=== PATIENT | female | born 1940 | race Caucasian/White ===

== ENCOUNTER → 2017-09-06 | Outpatient (CLI) | payer OTHER, MEDICARE | LOC: BRMIMAGING 12:21 | PROVIDERS: ATTEND Internal Medicine | DX: Z13.820 Encounter for screening for osteoporosis (principal); M85.89 Other specified disorders of bone density and structure, multiple sites; I70.0 Atherosclerosis of aorta; Z78.0 Asymptomatic menopausal state ==

== ENCOUNTER 2017-10-23 09:18 | Day surgery (SDC) | payer OTHER, MEDICARE ==
[2017-10-23] MEDS ORDERED: fentaNYL 100 MCG/2 ML INJ IVP ONE (09:22)
[2017-10-23] MEDS ORDERED: NS 500 ML IV ONE (09:22)
[2017-10-23] MEDS ORDERED: BENZOCAINE UNIT DOSE SPRAY HURRICAINE MM ONE (09:22)
[2017-10-23] MEDS ORDERED: MIDAZOLAM 2 MG/2 ML VIAL IVP ONE (09:22)
[2017-10-23] MEDS ORDERED: ATROPINE SULFATE 1 MG/10 ML SYR IVP ONE (09:22)
--- NOTE | 2017-10-23 09:41 | CPEKG ---
Heart Rate: 81 RR Interval: 741 QRSD Interval: 108 QT Interval: 436 QTC Interval: 506 QRS [place]: 11 T Wave [place]: 43 EKG Severity - ABNORMAL ECG - EKG Impression: A-FLUTTER W/ PREDOM 3:1 AV BLOCK, A-RATE 223 EKG Impression: VENTRICULAR PREMATURE COMPLEX EKG Impression: INFERIOR INFARCT, OLD EKG Impression: ANTERIOR INFARCT, AGE INDETERMINATE EKG Impression: BORDERLINE PROLONGED QT INTERVAL Electronically Signed By: Adolfo Hale 24-Oct-2017 15:35:32
[2017-10-23 10:29] LABS: INR 2.39 (0.83-1.16); PROTIME(PATIENT) 26.1 SEC (12.0-15.0)
--- NOTE | 2017-10-23 11:09 | PDANEPAE ---
ANE History of Present Illness 77 year old with AF ANE Past Medical History - Cardiovascular History Hx Hypertension: Yes Hx Coronary Artery / Peripheral Vascular Disease: Yes - Pulmonary History Hx Sleep Apnea: No ANE Review of Systems Review of systems is: negative Review of Systems: ANE Patient History - Allergies Allergies/Adverse Reactions: No Known Allergies Allergy (Unverified 10/23/17 09:22) - Home Medications Home Medications: Aspirin 81mg (*) 81 mg PO DAILY 10/23/17 [Last Taken 10/22/17] Atorvastatin Calcium [Lipitor 40 mg (*)] 40 mg PO DAILY 10/23/17 [Last Taken Unknown] Coumadin 4 mg 10/23/17 [Last Taken 10/22/17] Levothyroxine [Synthroid 100 mcg (*)] 100 mg PO DAILY 10/23/17 [Last Taken 10/22] Lisinopril/Hctz 20/12.5MG PO DAILY 10/23/17 [Last Taken 10/22/17] Metoprolol Tartrate 50 mg PO BID 10/23/17 [Last Taken 10/22/17] Pantoprazole Sodium 40 mg PO DAILY 10/23/17 [Last Taken 10/22/17] Xanax 0.25 MG (*) 0.25 mg PO PRN PRN 10/23/17 [Last Taken Unknown] Zoloft 100mg (*) 100 mg PO BID 10/23/17 [Last Taken 10/22/17] - Smoking Hx Smoking Status: Former smoker ANE Labs/Vital Signs - Labs Result Diagrams: 10/23/17 10:11 - Vital Signs Height: 162.56 cm Weight: 77.111 kg ANE Physical Exam - Airway Neck exam: FROM Mallampati Score: Class 2 - Pulmonary Pulmonary: no respiratory distress - Cardiovascular Cardiovascular: regular rate and rhythym - ASA Status ASA Status: III ANE Anesthesia Plan Anesthesia Plan: MAC
[2017-10-23] MEDS ORDERED: PROPOFOL 200 MG/20 ML VIAL ONE (11:15)
--- NOTE | 2017-10-23 11:22 | PDHPUP ---
History & Physical Update H&P update statement: This history and physical update is based on an assessment of the patient which was completed after admission or registration (within 24 hours), but prior to the surgery/procedure. H&P update: H&P reviewed & patient examined, no change in patient's condition since H&P completed
--- NOTE | 2017-10-23 11:57 | PDTEE1 ---
BYRON Cardioversion Procedure Procedure: electrical cardioversion, transesophageal echo Indications: other (atrial flutter) Procedural Details: Sedation was provided by Dr. Kelley of the anesthesia service. Pads were placed in anterior-posterior position. BYRON probe was advanced and standard images obtained. There is no evidence of left atrial or left atrial appendage thrombus. Synchronized cardioversion attempt #1: 200J Results: normal sinus rhythm Conclusions: successful BYRON cardioversion
--- NOTE | 2017-10-23 12:05 | POSTANESTH ---
Post Anesthetic Evaluation Cardiovascular Status: Normal, Stable Respiratory Status: Normal, Stable Level of Consciousness/Mental Status: Can Participate in Eval Pain Control: Adequate, Prn Tx Ordered Nausea/Vomiting Control: Adequate, Prn Tx Ordered Complications Possibly Related to Anesthesia: None Noted
--- NOTE | 2017-10-23 17:14 | ECHO ---
[email or web address] [address] [address] Main: [phone] Fax: Transesophageal Echocardiography Name: CONRAD SCHNEIDER MR#: [id number] Study Date: 10/23/2017 Study Time: 10:56 AM Date of : 1940 Age: 77 year(s) Height: ( ) Weight: ( ) BSA: Gender: Female Examination: BYRON Indication: Pre Cardioversion Image Quality: Contrast: Requested by: Eli Soto Heart Rate: Rhythm: BP: / Procedure Staff Tin Tie Machine Operator Automatic: Chris Chavez RDCS Reading Physician: Eli Soto MD Requesting Provider: BYRON Exam Details Conclusions: The ejection fraction is estimated to be 40-45 %. An agitated saline study was performed and was negative for intracardiac shunting. No thrombus in left appendage. The mitral valve has been repaired. There is mid to moderate mitral regurgitation.. Proceeded with successful elective DC cardioversion.. Measurements: Chambers Valvular Assessment AV/MV Valvular Assessment TV/PV Normal Normal Normal Name Value Range Name Value Range Name Value Range EF Range: 40-45 % TR Vmax: 2.28 mm/s ( - ) TR PGmax: 21 mmHg ( - ) Additional Measurements: Findings: The ejection fraction is estimated to be 40-45 %. Left Atrium: An agitated saline study was performed and was negative for intracardiac shunting. Left Atrial Appendage: Good color flow doppler in the left atrial appendage. No thrombus in left appendage. Mitral Valve: The mitral valve has been repaired. There is mid to moderate mitral regurgitation.. Patient: CONRAD SCHNEIDER Study Date: 10/23/2017 Page 1 of 2 10:56 AM Aortic Valve: The aortic valve is normal in appearance and function. The aortic valve is tri-leaflet. Tricuspid Valve: The tricuspid valve is normal in appearance and function. Pulmonic Valve: The pulmonic valve is normal in appearance and function. Aorta: The aorta is normal. Pericardium: No pericardial effusion. Exam Comments: Proceeded with successful elective DC cardioversion.. l1n (No Signature Object) Patient: CONRAD SCHNEIDER Study Date: 10/23/2017 Page 2 of 2 10:56 AM [id number]
--- NOTE | 2017-10-24 10:25 | CPEKG ---
Heart Rate: 52 RR Interval: 1154 P-R Interval: 204 QRSD Interval: 112 QT Interval: 464 QTC Interval: 432 P [place]: 32 QRS [place]: 8 T Wave [place]: 37 EKG Severity - ABNORMAL ECG - EKG Impression: SINUS RHYTHM EKG Impression: NONSPECIFIC INTRAVENTRICULAR CONDUCTION DELAY EKG Impression: INFERIOR INFARCT, AGE INDETERMINATE EKG Impression: CONSIDER ANTERIOR INFARCT Electronically Signed By: Adolfo Hale 24-Oct-2017 15:35:37
== END 2017-10-23 14:04 | disposition home or self-care (01) ==
LOC: FCATH 09:18
PROVIDERS: ATTEND Internal Medicine Cardiovascular Disease
PROC: 5A2204Z Restoration of Cardiac Rhythm, Single (ICD-10-PCS; principal; 2017-10-23)
DX: I48.92 Unspecified atrial flutter (principal); I10 Essential (primary) hypertension; E78.00 Pure hypercholesterolemia, unspecified; R06.02 Shortness of breath; I38 Endocarditis, valve unspecified; I25.10 Atherosclerotic heart disease of native coronary artery without angina pectoris
CPT/HCPCS: J0461; J2704

== ENCOUNTER → 2017-11-17 | Outpatient (CLI) | payer OTHER, MEDICARE | LOC: BHFA 13:30 | PROVIDERS: ATTEND Internal Medicine Cardiovascular Disease | DX: I25.10 Atherosclerotic heart disease of native coronary artery without angina pectoris (principal) | CPT/HCPCS: 78452; 93017; A9500 ==

== ENCOUNTER 2017-11-22 07:32 | Observation (INO) | payer OTHER, MEDICARE ==
[2017-11-22] MEDS ORDERED: NS 1,000 ML IV ONE (07:33)
[2017-11-22] MEDS ORDERED: ASPIRIN EC 325 MG TAB PO ONE (07:33)
[2017-11-22] MEDS ORDERED: diphenhydrAMINE 25 MG CAP PO ONE (07:33)
[2017-11-22] MEDS ORDERED: FAMOTIDINE 20 MG TAB PO ONE (07:33)
[2017-11-22] MEDS ORDERED: DIAZEPAM 5 MG TAB PO ONE (07:33)
--- NOTE | 2017-11-22 07:58 | CPEKG ---
Heart Rate: 57 RR Interval: 1053 P-R Interval: 136 QRSD Interval: 106 QT Interval: 444 QTC Interval: 433 P [place]: 26 QRS [place]: -7 T Wave [place]: 43 EKG Severity - ABNORMAL ECG - EKG Impression: SINUS RHYTHM EKG Impression: INFERIOR INFARCT, OLD EKG Impression: CONSIDER ANTERIOR INFARCT Electronically Signed By: Edilberto Melissa 22-Nov-2017 10:45:53
[2017-11-22 08:14] LABS: PLATELET COUNT 325 10^3/uL (150-400)
[2017-11-22] MEDS ORDERED: LIDOCAINE 1% 300 MG/30 ML SDV ONE (08:27)
[2017-11-22] MEDS ORDERED: fentaNYL 100 MCG/2 ML INJ ONE ×2 (08:28→11:14)
[2017-11-22] MEDS ORDERED: MIDAZOLAM 2 MG/2 ML VIAL ONE ×3 (08:28→12:30)
[2017-11-22] MEDS ORDERED: IOPAMIDOL (ISOVUE-370) 150 ML BTL IV ONE ×3 (08:28→12:16)
[2017-11-22 08:32] LABS: INR 2.23 (0.83-1.16); PROTIME(PATIENT) 24.7 SEC (12.0-15.0)
--- NOTE | 2017-11-22 10:10 | PDPROPOC ---
Sedation Plan of Care Sedation Plan of Care: vital signs stable, mental status noted, patient educated of risks, benefits, alternatives, patient can tolerate sedation ASA Classification: ASA 3 Planned drugs: fentanyl, midazolam Mallampati Score: Class 2 Mallampati Reference Image: Patient passed 3-3-2 rule?: Yes
--- NOTE | 2017-11-22 10:11 | PDHPUP ---
History & Physical Update H&P update statement: This history and physical update is based on an assessment of the patient which was completed after admission or registration (within 24 hours), but prior to the surgery/procedure. H&P update: H&P reviewed & patient examined, no change in patient's condition since H&P completed H&P changes: patient with INR of 2.2 known ROJAS occlusion needs cath for large lateral perfusion deficit.
[2017-11-22] MEDS ORDERED: HEPARIN 10,000 UNIT/10 ML MDV (1,000 UNIT/ML) ONE (10:21)
[2017-11-22] MEDS ORDERED: VERAPAMIL 5 MG/2 ML VIAL ONE (10:21)
--- NOTE | 2017-11-22 10:28 | PDDXCAT ---
Diagnostic Cath Note - . Date: 11/22/17 Electrician Shop: Geoffrey Indication: CCC Class III and IV angina on medical treatment, High-risk criteria on noninvasive testing (choose option below) (Shortness of breath, High risk stress test), other High-risk criteria on non-invasive testing: high-risk treadmill score (score<=- 11) - Procedure Access: left wrist Procedure: left heart catheterization, coronary angiography, vein graft injection - Materials Left Heart Cath size: 6F (slender) Left Heart Cath materials: standard multipack (JL4, JR4, pigtail) - Findings-Left Heart Catheterization LM: The LM coronary has an ostial 40% stenosis and is severely disease prior to the bifucation into the LAD and circumflex system. LAD: The LAD proper demonstrtates a 80% ostial stenosis. The vein graft to the LAD is noted to be widely patent and comes off inferior to the diagonal graft and from the right side of the aorta. The ostial diagonal graft is again seen retrograde and is noted to be severely stenosed at the takeoff from its aorta. LCX: The LCX is small, 1.5 mm in size and diffusely diseased. It is ungrafted. Approx 2mm in size. There is 70% ostial stenosis. KAELA III flow. No evidence of flow limiting obstruction. This vessel is not a good target for intervension. RCA: RCA is occluded after the first RV branch. KAELA 0 flow. rSV.) The rSVG to the RCA is widely patent. 2.)The rSVG to the diagonal occluded has a 95% bird's beak ostial stenosis with KAELA III flow. 3.) The rSVG to the LAD is widely patent and was visualized in its entirety via the retrograde filling from left coronary artery injection. KAELA III flow throughout. ROJAS: The ROJAS is known to be occluded. EDP: LVEDP is 23 mmHg. LVEF: The EF is 45-50%. Wall motion: The EF is 45-50% with basal inferior wall hypokinesis consistent with prior myocardial infarction. No significant mitral regurgitation. Complications: NONE. Estimated blood loss: <50ml Closure method: TR Band Assessment: The patient has ute vessel coronary artery disease with flow limiting obstruction in the rSVG to the diagonal. This was subsequently repaired with a drug eluting stent. Plan: Dual antiplatelet therapy with Aspirin 81 mg for the first month followed by Coumadin in adjusted dose, along with Plavix 75 mg daily should be continued for at least 1 year following drug eluting stent implantation. No elective surgery for the first 3 months. Decisions to stop the combination of Coumadin and Plavix before 1 year should involve our office at [facility], . Intervention: A 6 Bengali IM was used for guide catheter support. A 0.014 Intuition Wire was advanced across the lesion in question under direct and angiographic guidance. A 4.0 x 20 mm NC balloon was used to pre-dilate the lesion. Max pressure was 12 ARLENE. We then placed a 0.014 Wiggle wire next to the Intuition wire and put 3.5 x 10 mm cutting balloon in, this resulted in 60% stenosis s/p angioplasty. The lesion in the rSVG to the diagonal was secondarily stented with a 4.0 x 16 Synergy drug eluting stent. A 4.5 x 12 mm NC balloon was used for post- dilation. 20% post stent residual. KAELA III flow pre and post stent implantation. Post stent we attempted to perform IVUS over the Wiggle wire. The device would not advance because of lack of guide support. To avoid damaging the freshly implanted stent we abandoned IVUS. IF THE PATIENT HAS SUBSEQUENT INTERVENTION TO THIS VEIN GRAFT IT WOULD BE RECOMMENDED THAT LEFT CORONARY BE INJECTED FIRST TO TRY TO VISUALIZE THE STENT WITH RETROGRADE ANGIOGRAPHY. BECAUSE WE WERE UNABLE TO PERFORM POST STENT IMPLANTATION IVUS, I'M NOT SURE HOW MUCH OF THE STENT HANGS BACK INTO THE AORTA AND THEREFORE ATTEMPTS TO DIRECTLY CANNULATE THIS VESSEL MAY CAUSE DAMAGE TO THE STENT. CAUTION SHOULD BE USED IN ATTEMPTS TO PERFORM SELECTIVE ANGIOGRAPHY OF THE SVG TO THE DIAGONAL. CAREFUL REVIEW OF TODAY'S ANGIOGRAPHY WOULD BE IMPORTANT.
[2017-11-22] MEDS ORDERED: NITROGLYCERIN 0.4 MG BTL SL PRN (12:39)
[2017-11-22] MEDS ORDERED: TEMAZEPAM 15 MG CAP PO PRN (12:39)
[2017-11-22] MEDS ORDERED: ATROPINE SULFATE 1 MG/10 ML SYR IVP PRN (12:39)
[2017-11-22] MEDS ORDERED: HYDROCODONE/APAP 5/325 TAB PO PRN (12:39)
[2017-11-22] MEDS ORDERED: OXYCODONE/APAP 5/325 TAB PO PRN (12:39)
[2017-11-22] MEDS ORDERED: LORazepam 2 MG/ML INJ IVP PRN (12:39)
[2017-11-22] MEDS ORDERED: ONDANSETRON 4 MG/2 ML VIAL IVP PRN (12:39)
[2017-11-22] MEDS ORDERED: CLOPIDOGREL BISULFATE 75 MG TAB PO ONE (12:39)
[2017-11-22] MEDS ORDERED: CLOPIDOGREL BISULFATE 75 MG TAB ONE (12:40)
[2017-11-22] MEDS ORDERED: NS 1,000 ML IV SCH (12:45)
[2017-11-22] MEDS ORDERED: ALPRAZolam 0.25 MG TAB PO PRN (12:49)
--- NOTE | 2017-11-22 13:31 | CPEKG ---
Heart Rate: 42 RR Interval: 1429 P-R Interval: 216 QRSD Interval: 108 QT Interval: 516 QTC Interval: 432 P [place]: 36 QRS [place]: -29 T Wave [place]: 10 EKG Severity - ABNORMAL ECG - EKG Impression: SINUS BRADYCARDIA EKG Impression: INFERIOR INFARCT, AGE INDETERMINATE EKG Impression: ANTERIOR INFARCT, AGE INDETERMINATE Electronically Signed By: Edilberto Melissa 22-Nov-2017 22:33:19
[2017-11-22] MEDS: ACETAMINOPHEN 325 MG TAB PO PRN (17:27)
[2017-11-23 04:58] LABS: PLATELET COUNT 290 10^3/uL (150-400)
[2017-11-23] MEDS ORDERED: LEVOTHYROXINE 100 MCG TAB PO SCH (06:00)
[2017-11-23] MEDS ORDERED: PANTOPRAZOLE SODIUM 40 MG TAB PO SCH (09:00)
[2017-11-23] MEDS ORDERED: CLOPIDOGREL BISULFATE 75 MG TAB PO SCH (09:00)
[2017-11-23] MEDS ORDERED: METOPROLOL SUCCINATE XR 25 MG TAB PO SCH (09:00)
[2017-11-23] MEDS ORDERED: ATORVASTATIN CALCIUM 40 MG TAB PO SCH (09:00)
[2017-11-23] MEDS ORDERED: ASPIRIN EC 325 MG TAB PO SCH (09:00)
[2017-11-23] MEDS ORDERED: LISINOPRIL/HCTZ 20/12.5MG 1 EA TAB PO SCH (09:00)
[2017-11-23] MEDS ORDERED: SERTRALINE HCL 100 MG TAB PO SCH (09:00)
--- NOTE | 2017-11-23 09:01 | CPEKG ---
Heart Rate: 64 RR Interval: 938 P-R Interval: 144 QRSD Interval: 106 QT Interval: 428 QTC Interval: 442 P [place]: 24 QRS [place]: -1 T Wave [place]: 3 EKG Severity - ABNORMAL ECG - EKG Impression: SINUS RHYTHM EKG Impression: INCOMPLETE RIGHT BUNDLE BRANCH BLOCK EKG Impression: INFERIOR INFARCT, AGE INDETERMINATE Electronically Signed By: Edilberto Melissa 23-Nov-2017 22:57:08
--- NOTE | 2017-11-23 11:03 | PDCARPN ---
Cardiology Progress Note Chief Complaint: Post-cath and stent evaluation. Assessment/Plan: Assessment: Laurie had a heart catheterization yesterday with stenting in the ostium of the rSVG to the diagonal. She tolerated the procedure well and appears to be doing well today. Her wrist site appears to be healing well. Laurie continues to have some shortness of breath. I reviewed her lab work, which shows iron deficiency anemia. I discussed with the patient that her shortness of breath is no longer cardiac related and may be related to her iron deficiency anemia. She has not had dark or bloody stools and denies hematemesis. I have recommended that she have a colonoscopy in 3 months to evaluate for GI bleed or other GI abnormalities causing her anemia. Plan: We will repeat her lab work to evaluate the severity of her anemia. I think it is safe for the patient to be discharged home today. I recommend she follow up with of [facility] to schedule a colonoscopy. I discussed the findings with patient's daughter and have recommended a diet that is increased in iron. The patient will require iron supplementation as well. I suspect the patient does have significant iron deficiency anemia. 11/23/17 10:57 11/23/17 11:15 Subjective: The patient is resting in bed. She continues to complain of some shortness of breath. Her wrist site appears to be healing well and is not actively bleeding. Reviewed/Discussed With: family, hospitalist, multidisciplinary team Objective: Vital Signs (8 Hrs) Temp Pulse Resp BP Pulse Ox 11/23/17 07:28 36.8 C 63 18 127/43 H 91 L 11/23/17 04:00 37.7 C 76 16 135/53 H 91 L Intake/Output (24 Hrs) 11/22/17 11/23/17 11/24/17 05:59 05:59 05:59 Intake Total 575 Balance 575 Intake: Oral (ml) 575 Other: Weight 74.843 kg Number of Voids Toilet 3 Result Diagrams: 11/23/17 03:42 11/23/17 03:42 EKG: sinus rhythm old inferior infarct Telemetry: I reviewed the rhythm strips, she is having PVC's with occasional (2 overnight) couplets. - Physical Exam Constitutional: WDWN Eyes: PERRL Ears, Nose, Mouth, Throat: moist mucous membranes Cardiovascular: regular rate and rhythm Peripheral Pulses: 2+: carotid (R), carotid (L), femoral (R), femoral (L), dorsalis-pedis (R), dorsalis-pedis (L) Respiratory: clear to auscultate bilat Musculoskeletal: other (left wrist radial puncture site is intact with moderate ecchymosis. ) Neurologic: AAOx3 Psychiatric: cooperative, interactive ICD10 Worksheet Patient Problems: Problems Problem Status Onset Coronary artery disease Acute - ICD10 Problem Qualifiers (1) Coronary artery disease Qualifiers: Coronary Disease-Associated Artery/Lesion type: bypass graft [place] vs. transplanted heart: [place] heart Associated angina: with unstable angina Qualified Code(s): I25.700 - Atherosclerosis of coronary artery bypass graft(s) , unspecified, with unstable angina pectoris
[2017-11-23 11:22] VITALS: BP 112/51
--- NOTE | 2017-11-23 12:25 | ASMTCMCOM ---
CM Note CM Note Notes: Chart reviewed for discharge needs. Patient here for elective heart cath with complaints of increased shortness of breath, angiogram done with stent placement. Per MD questioning iron deficiency and recommending GI workup. Likely to discharge home independently today No needs identified, CM available should needs arise. Plan: Home no needs Date Signed: 11/23/2017 12:25 PM Electronically Signed By:Kim Us RN
[2017-11-23] MEDS: ACETAMINOPHEN 325 MG TAB PO PRN (13:25)
--- NOTE | 2017-11-24 19:06 | GDS ---
[f rep st] DISCHARGE SUMMARY ADMIT DIAGNOSIS: 1. Abnormal nuclear stress test. 2. Planned cardiac angiogram. 3. Known valvular heart disease with mitral repair in 2013. 4. Hypertension. 5. Dyslipidemia. 6. Paroxysmal atrial flutter with recent cardioversion. DISCHARGE DIAGNOSIS: 1. Percutaneous coronary intervention of the right saphenous vein graft to diagonal. 2. Past history of coronary artery bypass graft. 3. Hypertension. 4. Hyperlipidemia. 5. Valvular heart disease. COURSE OF HOSPITALIZATION: She was seen in clinic by ISAEL Bernabe, with complaints of increasi ng shortness of breath. She has been caring for her who has dementia. With her past history of coronary artery disease and bypass surgery, it was recommended to proceed with nuclear stress ellis ting which showed concern for progression of cardiac disease. It was recommended to proceed with car diac angiogram. She was taken to the cardiac shop laborer by Dr. Edilberto Melissa, finding a lesion of the ve in graft. Dr. Adolfo Hale was asked to intervene and was able to place a drug-eluting stent in the right saphenous vein graft to the diagonal. LVEF was estimated at 45% to 50%, with basal inferior wa ll hypokinesis consistent with prior myocardial infarction. There was no significant mitral regurgit ation. Dr. Hale recommended dual anti-platelet therapy with aspirin 81 mg for the 1st month follow ed by Coumadin in adjusted dose along with Plavix 75 mg daily. Wrist approach was utilized for the c ardiac angiogram, which is healing well with no ecchymosis or tenderness. On day of discharge, she did continue to have some shortness of breath. In review of lab work, she s hows to have iron deficiency anemia. This was discussed with the patient by Dr. Hale. She has had no indication of dark or bloody stools and denied hematemesis. Dr. Hale recommended a colonoscopy in 3 months to evaluate for GI bleed or other GI abnormalities causing her anemia. It is recommende d that she follow up with GI of the [facility] to schedule a colonoscopy. These findings were discussed with the patient's daughter. A diet with increased iron is recommended. She will require iron supp lementation as well. She is to follow up with her primary care doctor to oversee further evaluation of her anemia. At this time, she has been up ambulating and feels stable for discharge. MEDICATIONS: She will go home on Lipitor 40 mg daily, Tylenol Extra Strength 500 mg every 6 hours as needed not to exceed 3000 mg daily. Coumadin 6 mg Monday, Monday, , Monday; Coumadin 4 m g Monday, Monday, Monday. Protonix 40 mg daily. Xanax 0.25 mg t.i.d. as needed. Metoprolol succ inate 25 mg daily, lisinopril hydrochlorothiazide 20/12.5 mg 1 tab daily, Synthroid 100 mcg daily, as pirin 81 mg daily, sertraline 200 mg daily, Plavix 75 mg daily. ALLERGIES: She has no known allergies. PROCEDURES: Cardiac catheterization on 11/25/2017, with Dr. Adolfo Hale, finding RCA occluded after the 1st RV branch. PCI of the right saphenous vein graft to the diagonal with drug-eluting stent. EF estimated at 45% to 50%. There were no complications. PHYSICAL EXAMINATION: VITAL SIGNS: On day of discharge, blood pressure 112/51, heart rate 56 and re gular, oxygen saturation 91%. EKG showed normal sinus rhythm. HEART: Rate regular. No murmurs, ru bs, gallops. LUNGS: Clear to auscultation. No wheezes, rales, or rhonchi. EXTREMITIES: Wrist sit e intact with no bleeding, induration or pain. Good radial and ulnar pulses, good capillary refill. No peripheral edema. DISCHARGE PLAN: 1. Follow up in clinic in [address] Soto. She has this appointment scheduled. 2. Wrist precautions were reviewed verbally with written instructions provided. 3. Stop aspirin due to potential for bleeding. 4. Follow up with primary physician about iron deficiency and need for colonoscopy. 5. Have Coumadin level checked in 1 week. 6. Call [facility] for any concerns or questions. At this time, she is currently stable for discharge. /[id number]/[id number]
== END 2017-11-23 13:40 | disposition home or self-care (01) ==
LOC: FCATH 07:32 → F2W 12:41
PROVIDERS: ADMIT Internal Medicine Cardiovascular Disease; ATTEND Internal Medicine Cardiovascular Disease
PROC: B2151ZZ Fluoroscopy of Left Heart using Low Osmolar Contrast (ICD-10-PCS; principal; 2017-11-22)
PROC: 4A023N7 Measurement of Cardiac Sampling and Pressure, Left Heart, Percutaneous Approach (ICD-10-PCS; principal; 2017-11-22)
PROC: B21 Imaging, Heart, Fluoroscopy (ICD-10-PCS; principal; 2017-11-22)
PROC: 027034Z Dilation of Coronary Artery, One Artery with Drug-eluting Intraluminal Device, Percutaneous Approach (ICD-10-PCS; principal; 2017-11-22)
DX: I25.700 Atherosclerosis of coronary artery bypass graft(s), unspecified, with unstable angina pectoris (principal); R94.39 Abnormal result of other cardiovascular function study; D50.9 Iron deficiency anemia, unspecified; R06.02 Shortness of breath; I48.0 Paroxysmal atrial fibrillation; I48.92 Unspecified atrial flutter; I10 Essential (primary) hypertension; E78.00 Pure hypercholesterolemia, unspecified; I38 Endocarditis, valve unspecified; I25.2 Old myocardial infarction; K21.9 Gastro-esophageal reflux disease without esophagitis; E03.9 Hypothyroidism, unspecified; I25.10 Atherosclerotic heart disease of native coronary artery without angina pectoris; Z79.82 Long term (current) use of aspirin; Z79.01 Long term (current) use of anticoagulants; Z87.891 Personal history of nicotine dependence; Z82.49 Family history of ischemic heart disease and other diseases of the circulatory system; Z95.2 Presence of prosthetic heart valve; Z98.1 Arthrodesis status
CPT/HCPCS: 92978; 93005; 93459; C1725; C1753; C1769; C1874; C1887; C9604; J1644; J2250; J3010; Q9967; 84481-90

== ENCOUNTER → 2018-01-15 | Outpatient (CLI) | payer OTHER, MEDICARE | LOC: CIMAGING 13:20 | PROVIDERS: ATTEND Internal Medicine | DX: R06.02 Shortness of breath (principal); K44.9 Diaphragmatic hernia without obstruction or gangrene; M47.894 Other spondylosis, thoracic region; I70.0 Atherosclerosis of aorta; Z98.890 Other specified postprocedural states | CPT/HCPCS: 71046-PO ==

== ENCOUNTER 2018-01-30 16:28 | Emergency (ER) | payer OTHER, MEDICARE ==
--- NOTE | 2018-01-30 16:43 | EDPHY ---
H & P Stated Complaint: l sided upper back pain x 2 days sharp/worse with movement/ saw cards this m Time Seen by Provider: 01/30/18 16:43 - Personal History Current Tetanus Diphtheria and Acellular Pertussis (TDAP): Yes - Medical/Surgical History Hx Asthma: No Hx Chronic Respiratory Disease: No Hx Diabetes: No Hx Cardiac Disease: Yes Hx Renal Disease: No Hx Cirrhosis: No Hx Alcoholism: No Hx HIV/AIDS: No Hx Splenectomy or Spleen Trauma: No Other PMH: CAD, Depression, CABG x4 2003, GERD, MVR 2013, HTN, HLD, A-flutter, hypothyroid - Social History Smoking Status: Former smoker Constitutional: Initial Vital Signs Temperature (C) 36.3 C 01/30/18 16:39 Heart Rate 63 01/30/18 16:39 Respiratory Rate 19 01/30/18 16:39 Blood Pressure 165/55 H 01/30/18 16:39 O2 Sat (%) 96 01/30/18 16:39 O2 Delivery Mode Room Air Allergies/Adverse Reactions: No Known Allergies Allergy (Verified 01/30/18 16:39) Home Medications: Medication Instructions Recorded Atorvastatin Calcium [Lipitor 40 40 mg PO DAILY 10/23/17 mg (*)] ALPRAZolam [Xanax 0.25 MG (*)] 0.25 mg PO TID PRN 11/21/17 Acetaminophen [Tylenol ES 500 mg 500 mg PO Q6 PRN 11/21/17 (*)] Levothyroxine [Synthroid 100 mcg 100 mcg PO DAILY06 11/21/17 (*)] Lisinopril/Hctz 20/12.5MG 1 tab PO DAILY 11/21/17 [Zestoretic/Prinzide 20/12.5MG (*)] Metoprolol Succinate [Toprol Xl] 25 mg PO DAILY 11/21/17 Pantoprazole Sodium [Protonix 40mg 40 mg PO DAILY 11/21/17 (*)] Sertraline HCl 200 mg PO DAILY 11/21/17 Warfarin Sodium [Coumadin 4MG (*)] 4 mg PO MWF@16 11/21/17 Warfarin Sodium [Coumadin] 6 mg PO SUTUTHSA@16 11/21/17 Clopidogrel Bisulfate [Plavix (*)] 75 mg PO DAILY #30 tab 11/23/17 Cephalexin [Keflex (RX)] 500 mg PO TID #30 cap 01/30/18 oxyCODONE IR [Oxycodone Ir (*)] 5 mg PO Q4-6PRN PRN #20 tab 01/30/18 Medical Decision Making - Diagnostics Imaging Results: Imaging Impressions Ribs w/Chest X-Ray 01/30/18 16:48 Impression: 1. No acute osseous abnormality. 2. Mild cardiomegaly with central congestion. 3. Increased interstitial markings are likely age-related. Imaging: I viewed and interpreted images myself ED Course/Re-evaluation: CHIEF COMPLAINT: Left-sided back pain HISTORY OF PRESENT ILLNESS: The patient is an anticoagulated (Coumadin) 77 y/o female with a history of CABG x 4 and atrial fibrillation complaining of sharp, left-sided upper back pain, onset 2 days ago. She does care for her and often has to lift heavy objects. However, she is unable to recall an event that started the back pain. Due to this pain she took Motrin, Tylenol, and Xanax with mild relief of symptoms. Today at 11:00, 6 hours ago, the pain exacerbated so she decided to present to the emergency department. Denies urinary complaints, chest pain, shortness of breath, abdominal pain, numbness, paresthesias, fever. REVIEW OF SYSTEMS: A 10 point review of systems was performed and is negative with the exception of the elements mentioned in the history of present illness. PHYSICAL EXAM: HR, BP, O2 Sat, RR. Temp noted General Appearance: Alert, well hydrated, appropriate, and non-toxic appearing. Head: Atraumatic without scalp tenderness or obvious injury Eyes: Pupils equal, round, reactive to light and accommodation, EOMI, no trauma , no injection. Ears: Clear bilaterally, no perforation, normal landmarks Nose: Atraumatic, no rhinorrhea, clear. Throat: There is no erythema or exudates, no lesions, normal tonsils, mucus membranes moist. Neck: Supple, 2+ carotid upstroke, nontender, no lymphadenopathy. Back: Left scapular tenderness. Respiratory: No retractions, no distress, no wheezes, and no accessory muscle use. Lungs are clear to auscultation bilaterally. Cardiovascular: Regular rate and rhythm, no murmurs, rubs, or gallops. Bilateral carotid, radial, dorsalis pedis, and posterior tibial pulses intact. Good capillary refill all extremities. Gastrointestinal: Abdomen is soft, nontender, non-distended, no masses, no rebound, no guarding, no peritoneal signs. Musculoskeletal: Normal active ROM of all extremities, atraumatic. Neurological: Alert, appropriate, and interactive. The patient has normal DTRs and non-focal cranial nerves, motor, sensory, and cerebellar exam. Skin: No rashes, good turgor, no nodules on palpation. Past medical history: CAD, depression, GERD, hypertension, A-flutter, hypothyroid Past surgical history: CABG x4 (2003) Family history: Denies Social history: Daughter at bedside DIAGNOSTICS/PROCEDURES/CRITICAL CARE TIME: Rib x-ray: No acute findings EKG: The 12 lead EKG was interpreted by myself as sinus rhythm with a rate of 57 , old inferior infarct, and abnormal r-wave progression. There is no change from prior EKG on 11/23/17. See hard copy and/or "tracemaster" electronic copy for interpretation. DIFFERENTIAL DIAGNOSIS: The differential diagnosis for the patient's back pain included but was not limited to musculoskeletal pain, epidural abscess, herniated disk, spinal fracture, and intra-abdominal causes including urinary system. MEDICAL DECISION MAKING: The patient is an anticoagulated (Coumadin) 77 y/o female with a history of CABG x 4 and atrial fibrillation presenting with sharp, left-sided upper back pain, onset 2 days ago. On exam she has left scapular tenderness. Rib x-ray, EKG , and UA ordered; 10mg PO OxyIR given. 1718: I interpreted EKG as sinus rhythm with a rate of 57 and abnormal r-wave progression. There is no change from prior EKG on 11/23/17. 1720: Patient has a normal rib x-ray. UA still pending. 1741: Patient's UA reveals red cells, nitrites, and bacteria. I have prescribed her Keflex for this UTI, her first dose was given prior to discharge. 1744: Reassessed patient and discussed laboratory and imaging findings. I have prescribed her OxyIR for her back pain. Return precautions provided; patient is comfortable with this plan. - Data Points Laboratory Results: 01/30/18 17:15 Urine Color YELLOW Urine Appearance CLEAR Urine pH 5.0 (5.0-7.5) Ur Specific [place] 1.017 (1.002-1.030) Urine Protein NEGATIVE (NEGATIVE) Urine Ketones NEGATIVE (NEGATIVE) Urine Blood NEGATIVE (NEGATIVE) Urine Nitrate POSITIVE H (NEGATIVE) Urine Bilirubin NEGATIVE (NEGATIVE) Urine Urobilinogen NEGATIVE EU EU (0.2-1.0) Ur Leukocyte Esterase NEGATIVE (NEGATIVE) Urine RBC 15-25 /hpf H /hpf (0-3) Urine WBC 1-3 /hpf /hpf (0-3) Ur Epithelial Cells TRACE /lpf /lpf (NONE-1+) Urine Bacteria 2+ /hpf H /hpf (NONE SEEN) Urine Mucus TRACE /lpf /lpf (NONE-1+) Urine Glucose NEGATIVE (NEGATIVE) Medications Given: Discontinued Medications Oxycodone HCl (Oxycodone Ir) 10 mg PO EDNOW ONE Stop: 01/30/18 16:50 Last Admin: 01/30/18 17:04 Dose: 10 mg Departure - Departure Disposition: Home, Routine, Self-Care Clinical Impression: Left-sided back pain Qualifiers: Back pain location: thoracic back pain Chronicity: acute Qualified Code(s): M54.6 - Pain in thoracic spine UTI (urinary tract infection) Qualifiers: Urinary tract infection type: site unspecified Hematuria presence: with hematuria Qualified Code(s): N39.0 - Urinary tract infection, site not specified Condition: Good Instructions: Urinary Tract Infection in Women (ED), Back Pain (ED) Additional Instructions: 1. Take OxyIR as prescribed. 2. Take Keflex as prescribed for your urinary tract infection. 3. Followup with your PCP within one week. 4. Return to the emergency department for severe pain, fever, numbness, difficulty walking, change in location or nature of pain or other concerns. 5. Try using a heating pad. Referrals: Carmenza Tovar MD [Primary Care Provider] - As per Instructions Prescriptions: Cephalexin [Keflex (RX)] 500 mg PO TID #30 cap oxyCODONE IR [Oxycodone Ir (*)] 5 mg PO Q4-6PRN PRN #20 tab PRN Reason: Pain, Moderate Report Scribed for: Marco Tolliver Report Scribed by: Danay Rose Date of Report: 01/30/18 Time of Report: 16:45
[2018-01-30] MEDS ORDERED: oxyCODONE IR 5 MG TAB PO ONE (16:49)
--- NOTE | 2018-01-30 17:20 | CPEKG ---
Heart Rate: 57 RR Interval: 1053 P-R Interval: 176 QRSD Interval: 108 QT Interval: 452 QTC Interval: 440 P [place]: 60 QRS [place]: -9 T Wave [place]: 65 EKG Severity - ABNORMAL ECG - EKG Impression: SINUS RHYTHM EKG Impression: INFERIOR INFARCT, OLD EKG Impression: ABNRM R PROG, CONSIDER ASMI OR LEAD PLACEMENT Electronically Signed By: Marco Tolliver 30-Jan-2018 20:05:11
[2018-01-30] MEDS ORDERED: CEPHALEXIN 500 MG CAP PO ONE (17:46)
[2018-01-30 18:04] VITALS: BP 165/61
== END 2018-01-30 18:02 | disposition home or self-care (01) ==
DX: M54.6 Pain in thoracic spine (principal); I10 Essential (primary) hypertension; I25.810 Atherosclerosis of coronary artery bypass graft(s) without angina pectoris; N39.0 Urinary tract infection, site not specified; B96.89 Other specified bacterial agents as the cause of diseases classified elsewhere; Z79.01 Long term (current) use of anticoagulants; Z87.891 Personal history of nicotine dependence